=== PATIENT | male | born 1975 | race Caucasian/White ===

== ENCOUNTER 2017-05-25 17:26 | Emergency (ER) | payer MEDICARE ==
--- NOTE | ~2017-05-25 | CR150 ---
[facility] A Service of [facility] RADIOLOGY TEXT RESULTS PATIENT: ARNAUD TSAI LOCATION: CFTX : 73 UNIT #: [id number] AGE: [address]: Madeleine Munguia APRN SEX: M ORDER DR: [id number] [facility] [address] [place], [place] [address] [id number] E MR#: [id number] Acc #: [id number] NAME: ARNAUD TSAI : 1975 SEX: M STUDY DATE/TIME: 05/25/2017 18:28 UNIT: [facility] ROOM: STUDY DESCRIPTION: CR Hip Min 2 Views Lt Attending Physician: Madeleine Munguia A.P.R.N. Ordering Physician: Ed Judah Sun M.D. Primary Care Physician: Baudilio Gee M.D. MEDICAL IMAGING REPORT This report is preliminary unless electronic signature is present EXAM Left hip 2 views, 05/25/2017 HISTORY Left hip pain status post fall earlier today. FINDINGS 2 views of left hip demonstrate no fracture. The bones are normally mineralized and hip joints are normally maintained. There is a 5 mm metallic foreign body in the right hemipelvis. Clinical correlation is recommended. IMPRESSION 1. Negative left hip. 2. 5 mm metallic foreign body in the right hemipelvis. Clinical correlation is recommended. Dictated by... Austen Deng M.D. THIS IS AN ELECTRONICALLY VERIFIED REPORT Austen Deng M.D. at 05/26/2017 2:19 PM LEE/john paul TD: 05/26/2017 00:15 JOB #: [id number] MEDICAL IMAGING REPORT Page 1 of 1 COPY
[~2017-05-25 17:26] MED LIST: BACITRACIN; CIPRO PO; FLEXERIL10 MG PO; FLOMAX0.4 M1 PO; IBUPROFEN; IBUPROFEN800 MG PO; LORTAB 5/500 TA1 TA1 PO; NO MEDICATIONS; PREDNISONE PO; PYRIDIUM PO; TEGRETOL XR PO; TYLOX1 CAP 5/50 PO; VICODIN 5/1 TAB 5/50 PO
[2017-05-25 18:47] LABS: URINE SOURCE CLEAN CATCH
[2017-05-25 18:56] LABS: URINE APPEARANCE CLEAR; URINE BILIRUBIN NEG (NEG); URINE BLOOD NEG (NEG); URINE COLOR DK YELLOW; URINE GLUCOSE NEG (NEG); URINE KETONE NEG (NEG); URINE LEUKOCYTE ESTERASE NEG (NEG); URINE NITRATE NEG (NEG); URINE PH 6.5 (5-8); URINE PROTEIN NEG (NEG); URINE SPECIFIC GRAVITY 1.034 (1.003-1.035)
[2017-05-25 19:01] LABS: CULTURE INDICATED? NO
== END 2017-05-25 19:25 | disposition home or self-care (01) ==
LOC: CFTX 17:26 → CED 17:26 → CFTX 19:08
PROVIDERS: Nurse Practitioner
DX: S70.02XA Contusion of left hip, initial encounter (principal); W01.0XXA Fall on same level from slipping, tripping and stumbling without subsequent striking against object, initial encounter; Y92.009 Unspecified place in unspecified non-institutional (private) residence as the place of occurrence of the external cause
CPT/HCPCS: 73502; 81003; 96372; 99283; J1885